=== PATIENT | male | born 1975 ===

== ENCOUNTER 2016-05-17 21:19 | Emergency (ER) | payer SELFPAY ==
[2016-05-17 22:00] VITALS: BP 122/79; PULSE 69; RESP 16; TEMP 98.3; O2SAT 98
--- NOTE | 2016-05-17 23:09 | ED PDOC ---
HPI: Abdomen Time Seen by Provider: 05/17/16 22:01 Chief Complaint (Nursing): Abdominal Pain Chief Complaint (Provider): Abdominal Pain History Per: Patient Additional Complaint(s): Pt is a 41 yo male, no PMH, presents to ED for evaluation of acute onset of right flank pain that developed around 5 pm. Pt reports pain is severe 9/10 and reports that he is nauseous at times and has been sweating, No vomiting, no fever or chills. no urinary complaints, no history of kidney stones. Past Medical History Reviewed: Nursing Documentation, Vital Signs Vital Signs: Last Vital Signs Temp 98.3 F 05/17/16 21:57 Pulse 69 05/17/16 21:57 Resp 16 05/17/16 21:57 BP 122/79 05/17/16 21:57 Pulse Ox 98 05/17/16 23:09 - Medical History PMH: No Chronic Diseases - Surgical History Surgical History: No Surg Hx - Family History Family History: States: No Known Family Hx - Living Arrangements Living Arrangements: With Family - Social History Current smoker - smoking cessation education provided: No Alcohol: Social Drugs: Denies - Allergies Allergies/Adverse Reactions: Allergies Allergy/AdvReac Type Severity Reaction Status Date / Time No Known Allergies Allergy Verified 05/17/16 22:00 Review of Systems ROS Statement: Except As Marked, All Systems Reviewed And Found Negative Gastrointestinal: Positive for: Abdominal Pain Physical Exam - Reviewed Nursing Documentation Reviewed: Yes Vital Signs Reviewed: Yes - Physical Exam Appears: Positive for: Well, Non-toxic, No Acute Distress Head Exam: Positive for: ATRAUMATIC, NORMAL INSPECTION, NORMOCEPHALIC Skin: Positive for: Normal Color, Warm, DRY Eye Exam: Positive for: EOMI, Normal appearance, PERRL ENT: Positive for: Normal ENT Inspection Neck: Positive for: Normal, Painless ROM Cardiovascular/Chest: Positive for: Regular Rate, Rhythm Respiratory: Positive for: CNT, Normal Breath Sounds Gastrointestinal/Abdominal: Positive for: Bowel Sounds, Soft, Tenderness (R flank) Back: Positive for: Normal Inspection, R CVA Tenderness Extremity: Positive for: Normal ROM Neurologic/Psych: Positive for: Alert, Oriented - Laboratory Results Result Diagrams: 05/17/16 23:22 - ECG O2 Sat by Pulse Oximetry: 98 Medical Decision Making Medical Decision Making: IV access established and treatment initiated with IVF, Zofran, Morphine and Toradol Diagnostics ordered, WBC 11.9 COMP and UA pending CT scan pending Pt on re-eval reports pain is markedly improved, 05/04. 23:45: Transport present to escort Pt to CT scan. Case endorsed to CHRISTOPHER Sue at midnight pending diagnostic review and re-eval Disposition - Clinical Impression Clinical Impression: Flank pain - Patient ED Disposition Is Patient to be Admitted: No - Disposition Disposition: Transfer of Care ([facility]) Disposition Time: 00:00 Condition: STABLE
[2016-05-17 23:30] LABS: BASO # 0.1 K/uL (0.0-0.2); BASO % 0.7 % (0.0-2.0); EOS # 0.1 K/uL (0.0-0.7); EOS % 0.5 % (0.0-4.0); HEMATOCRIT 43.1 % (35.0-51.0); LYMPH # 1.4 K/uL (1.0-4.3); LYMPH % 11.9 % (20.0-40.0); MEAN CELL VOLUME 87.1 fl (80.0-94.0); MEAN CORPUSCULAR HEMOGLOBIN 28.5 pg (27.0-31.0); MEAN CORPUSCULAR HGB CONC 32.7 g/dL (33.0-37.0); MEAN PLATELET VOLUME 9.2 fl (7.2-11.7); MONO # 0.7 K/uL (0.0-0.8); MONO % 6.1 % (0.0-10.0); NEUT # 9.6 K/uL (1.8-7.0); NEUT % 80.8 % (50.0-75.0); NRBC % 0.1 % (0.0-0.0); RED CELL DISTRIBUTION WIDTH 13.1 % (11.5-14.5); WHITE BLOOD COUNT 11.9 K/uL (4.8-10.8)
[2016-05-17 23:38] LABS: ALB/GLOB RATIO 1.1 (1.0-2.1); ALKALINE PHOSPHATASE 95 U/L (38-126); ALT/SGPT 51 U/L (21-72); AST/SGOT 37 U/L (17-59); BILIRUBIN,TOTAL 0.7 mg/dl (0.2-1.3); BLOOD UREA NITROGEN 14 mg/dl (9-20); CALCIUM 8.7 mg/dL (8.4-10.2); CARBON DIOXIDE 25 mmol/L (22-30); CHLORIDE 104 mmol/L (98-107); GFR AFRICAN-AMERICAN > 60; GLUCOSE,RANDOM 159 mg/dL (75-110); POTASSIUM 3.9 MMOL/L (3.6-5.0); SODIUM 144 mmol/l (132-148); TOTAL PROTEIN 7.8 G/DL (6.3-8.2)
[2016-05-18 00:22] LABS: RBC URINE 97 /hpf (0-3); URINE BILIRUBIN NEGATIVE (NEGATIVE); URINE BLOOD MODERATE (NEGATIVE); URINE COLOR YELLOW (YELLOW); URINE GLUCOSE (UA) NEG (Normal); URINE KETONE NEGATIVE (NEGATIVE); URINE LEUKOCYTE ESTERASE NEG Leu/uL (Negative); URINE PROTEIN 30 mg/dL (NEGATIVE); URINE UROBILINOGEN 0.2-1.0 mg/dL (0.2-1.0); WBC URINE 3 /hpf (0-5)
--- NOTE | 2016-05-18 01:12 | ED PDOC ---
- Laboratory Results Result Diagrams: 05/17/16 23:22 05/17/16 23:22 - ECG O2 Sat by Pulse Oximetry: 98 - Progress ED Course And Treament: Case endorsed to card writer hand from Katherine WHITE pending labs, CT renal protocol EXAM: CT Abdomen and Pelvis Without Intravenous Contrast. CLINICAL HISTORY: 41 years old, male; Pain; Abdominal pain; Flank; Right; Additional info: R flank TECHNIQUE: Axial computed tomography images of the abdomen and pelvis without intravenous contrast. This CT exam was performed using one or more of the following dose reduction techniques: automated exposure control, adjustment of the mA and/or kV according to patient size, and/ or use of iterative reconstruction technique. EXAM DATE/TIME: Exam ordered 05/17/2016 10:47 PM COMPARISON: No relevant prior studies available. FINDINGS: Lower thorax: No acute findings. ABDOMEN: Liver: Unremarkable. Gallbladder and bile ducts: Unremarkable. No calcified stones. No ductal dilation. Pancreas: Unremarkable. No ductal dilation. Spleen: Unremarkable. No splenomegaly. Adrenals: Unremarkable. No mass. Kidneys and ureters: Punctate nonobstructing left renal calculus. Slight right renal sinus edema with mild right hydronephrosis and hydroureter which extends to a 2 mm right UVJ calculus. Stomach and bowel: Unremarkable. No obstruction. No mucosal thickening. Appendix: A normal appendix is seen. PELVIS: Bladder: Unremarkable. No stones. Reproductive: Unremarkable as visualized. ABDOMEN and PELVIS: Intraperitoneal space: Unremarkable. No free air. No significant fluid collection. Bones/joints: No acute fracture. No dislocation. Soft tissues: Unremarkable. Vasculature: Unremarkable. No abdominal aortic aneurysm. Lymph nodes: Unremarkable. No enlarged lymph nodes. IMPRESSION: 1. 2 mm right UVJ calculus with mild secondary obstructive uropathy of the right upper tract. 2. Punctate nonobstructing left renal calculus. 3. Otherwise negative CT abdomen/pelvis. On re-eval, patient states pain resolved. Flomax PO ordered Patient educated on findings, discharged with rx Flomax, Tramadol. Advised Ibuprofen PRN mod pain, otherwise tramadol severe pain. Follow up urology. Strainer given with education on use. Return to ED for worsening/concerning symptoms. Disposition - Clinical Impression Clinical Impression: Kidney stone - POA Present On Arrival: None - Disposition Referrals: [facility] [Outside] Gerson Gomes MD [Medical Doctor] - Disposition: Routine/Home Disposition Time: 01:48 Condition: IMPROVED Prescriptions: Tamsulosin [Flomax] 0.4 mg PO DAILY #7 cap traMADol [Ultram] 50 mg PO Q8 #12 tab Instructions: Kidney Stones (ED), Renal Colic (ED), How to Strain Your Urine ( ED)
--- NOTE | 2016-05-18 10:02 | CT ---
PROCEDURE: CT Abdomen and pelvis dated 05/17/2016. . HISTORY: r flank COMPARISON: None. TECHNIQUE: Contiguous axial images of the abdomen and pelvis performed in standard fashion of without oral or intravenous contrast material. Additional 2 dimensional sagittal and coronal reformats provided. Radiation dose: Total exam DLP = 1017.34 oralia mGy-cm. FINDINGS: LOWER THORAX: Unremarkable. LIVER: Unremarkable. No gross lesion or ductal dilatation. GALLBLADDER AND BILE DUCTS: Unremarkable. PANCREAS: Unremarkable. No mass. No ductal dilatation. SPLEEN: Unremarkable. No splenomegaly. ADRENALS: Unremarkable. KIDNEYS AND URETERS: Small approximately 2 mm calcification seen in the right UVJ region with mild right-sided hydronephrosis. . There is a punctate calcifications seen in the upper pole left kidney. BLADDER: Grossly unremarkable. REPRODUCTIVE: Unremarkable. APPENDIX: Unremarkable. BOWEL: Unremarkable. No obstruction. No gross mural thickening. PERITONEUM: Unremarkable. No fluid collection. No free air. LYMPH NODES: Unremarkable. No enlarged lymph nodes. VASCULATURE: Unremarkable. No aortic aneurysm. BONES: Minor multilevel degenerative spondylosis of the lower thoracic and lumbar spine. OTHER FINDINGS: None. IMPRESSION: 2 mm calcification right UVJ region with mild right-sided hydronephrosis. Punctate nonobstructing calcification upper pole left kidney.
== END 2016-05-18 02:25 | disposition home or self-care (01) ==
LOC: H.ER 21:19
DX: N20.0 Calculus of kidney (principal); R10.9 Unspecified abdominal pain
CPT/HCPCS: 74176; 80053; 81003; 85025; 96374; 96375; 99282; J1885; J2270; J2405

== ENCOUNTER 2017-01-07 20:07 | Emergency (ER) | payer OTHER ==
[2017-01-07 20:17] VITALS: RESP 18; O2SAT 99
[2017-01-07] MEDS ORDERED: DiphenhydrAMINE 50 mg/ml Inj IV STA (20:33)
--- NOTE | 2017-01-07 20:35 | ED PDOC ---
HPI: Abdomen Time Seen by Provider: 01/07/17 20:23 Chief Complaint (Nursing): Abnormal Skin Integrity Chief Complaint (Provider): abdominal pain History Per: Patient History/Exam Limitations: no limitations Onset/Duration Of Symptoms: Days (2 weeks), Waxing/Waning Current Symptoms Are (Timing): Still Present Location Of Pain/Discomfort: Epigastric, LUQ, LLQ Quality Of Discomfort: "Pain" Additional History Per: Patient Additional Complaint(s): 41 y/o male presents with intermittent left-sided abdominal pain x 2 weeks. Denies fever, nausea/vomiting, chest pain, shortness of breath, dysuria, hematuria. Patient also c/o generalized pruritic rash x 2 days. Patient states he has had this rash before about 6 months ago and is not sure the cause of it. Denies fever, difficulty speaking/swallowing, known allergen. No medications taken for relief thus far. Past Medical History Reviewed: Historical Data, Nursing Documentation, Vital Signs Vital Signs: Last Vital Signs Temp 99.0 F 01/07/17 20:14 Pulse 82 01/07/17 20:14 Resp 18 01/07/17 20:14 BP 133/73 01/07/17 20:14 Pulse Ox 99 01/07/17 23:38 - Medical History PMH: No Chronic Diseases - Surgical History Surgical History: No Surg Hx - Family History Family History: States: No Known Family Hx - Living Arrangements Living Arrangements: With Family - Home Medications Home Medications: Ambulatory Orders Medication Instructions Recorded Tamsulosin [Flomax] 0.4 mg PO DAILY #7 cap 05/18/16 traMADol [Ultram] 50 mg PO Q8 #12 tab 05/18/16 DiphenhydrAMINE [Benadryl] 50 mg PO Q6 PRN #30 cap 01/08/17 Famotidine [Pepcid] 20 mg PO BID #10 tab 01/08/17 Ibuprofen [Motrin Tab] 1 tab PO Q6 PRN #20 tab 01/08/17 Tamsulosin [Flomax] 0.4 mg PO DAILY #10 cap 01/08/17 predniSONE [Prednisone] 60 mg PO DAILY #12 tab 01/08/17 - Allergies Allergies/Adverse Reactions: Allergies Allergy/AdvReac Type Severity Reaction Status Date / Time No Known Allergies Allergy Verified 05/17/16 22:00 Review of Systems ROS Statement: Except As Marked, All Systems Reviewed And Found Negative Gastrointestinal: Positive for: Abdominal Pain Skin: Positive for: Rash Physical Exam - Reviewed Nursing Documentation Reviewed: Yes Vital Signs Reviewed: Yes - Physical Exam Appears: Positive for: Well, Non-toxic, No Acute Distress Head Exam: Positive for: ATRAUMATIC, NORMAL INSPECTION, NORMOCEPHALIC Skin: Positive for: Rash (diffuse erythematous macular rash; no tenderness, sandpaper appearance, pustules, vesicles noted) ENT: Positive for: Normal ENT Inspection Cardiovascular/Chest: Positive for: Regular Rate, Rhythm Respiratory: Positive for: Normal Breath Sounds Gastrointestinal/Abdominal: Positive for: Bowel Sounds, Soft, Tenderness (LUQ, LLQ, left flank) Back: Positive for: Normal Inspection Extremity: Positive for: Normal ROM Neurologic/Psych: Positive for: Alert, Oriented - Laboratory Results Result Diagrams: 01/07/17 20:57 01/07/17 20:57 - ECG O2 Sat by Pulse Oximetry: 99 - Progress ED Course And Treament: labs, urine, CT renal protocol, IV solumedrol, IV benadryl, IV pepcid XAM: CT Abdomen and Pelvis Without Intravenous Contrast CLINICAL HISTORY: 41 years old, male; Pain; Abdominal pain; Localized; Left; Additional info: Left abd/flank pain. Sent phy. Doc. TECHNIQUE: Axial computed tomography images of the abdomen and pelvis without intravenous contrast. All CT scans at this facility use one or more dose reduction techniques, viz.: automated exposure control; ma/kV adjustment per patient size (including targeted exams where dose is matched to indication; i.e. head); or iterative reconstruction technique. Coronal and sagittal reformatted images were created and reviewed. COMPARISON: No relevant prior studies available. FINDINGS: Lower thorax: The bilateral lung bases are clear. ABDOMEN: Liver: The liver is enlarged and demonstrates diffuse fatty infiltration. Gallbladder and bile ducts: No acute finding. No calcified stones. No intra- extrahepatic biliary ductal dilation. Pancreas: Limited evaluation secondary to the lack of intravenous contrast. Spleen: No acute findings. Adrenals: No acute findings. Kidneys and ureters: Mild right sided hydroureteronephrosis extending to the distal right ureter (just proximal to the ureterovesicular junction) where a 2 mm stone is identified ( series 601, image 68; series 3, image 166). The left kidney and ureter are unremarkable. PELVIS: Bladder: No acute findings. Reproductive: No acute findings. Appendix: The appendix is of normal caliber (series 3, image 133) ABDOMEN and PELVIS: Stomach and bowel: No acute findings. Peritoneum: No acute findings. Lymph nodes: Limited evaluation without intravenous contrast. Vasculature: Unremarkable. Bones: No acute fracture. IMPRESSION: Mild right-sided hydroureteronephrosis secondary to a 2 mm stone in the distal right ureter, just proximal to the right UVJ. Fatty infiltration of an enlarged liver. Patient educated on findings, discharged with rx prednisone, pepcid, benadryl, ibuprofen, flomax. Advised follow up PMD/urology/dermatology Return to ED for worsening/concerning symptoms. Disposition - Clinical Impression Clinical Impression: Kidney stone, Abdominal pain, Rash - Patient ED Disposition Is Patient to be Admitted: No Counseled Patient/Family Regarding: Studies Performed, Diagnosis, Need For Followup - Disposition Referrals: [facility] [Outside] Jim Orellana Jr., MD [Staff Provider] - Disposition: Routine/Home Disposition Time: 03:00 Condition: IMPROVED Prescriptions: DiphenhydrAMINE [Benadryl] 50 mg PO Q6 PRN #30 cap PRN Reason: Allergy Symptoms Famotidine [Pepcid] 20 mg PO BID #10 tab Ibuprofen [Motrin Tab] 1 tab PO Q6 PRN #20 tab PRN Reason: Pain, Moderate (4-7) predniSONE [Prednisone] 60 mg PO DAILY #12 tab Tamsulosin [Flomax] 0.4 mg PO DAILY #10 cap Instructions: Abdominal Pain (ED), Kidney Stones (ED), Acute Rash (ED) Forms: [employer] (Italian) Print Language: NORTH KOREAN
[2017-01-07 21:12] LABS: BASO # 0.1 K/uL (0.0-0.2); BASO % 1.5 % (0.0-2.0); EOS # 0.1 K/uL (0.0-0.7); HEMATOCRIT 43.8 % (35.0-51.0); LYMPH # 2.6 K/uL (1.0-4.3); LYMPH % 26.9 % (20.0-40.0); MEAN CELL VOLUME 86.6 fl (80.0-94.0); MEAN CORPUSCULAR HEMOGLOBIN 28.7 pg (27.0-31.0); MEAN CORPUSCULAR HGB CONC 33.1 g/dL (33.0-37.0); MONO # 0.8 K/uL (0.0-0.8); MONO % 7.9 % (0.0-10.0); NEUT % 62.7 % (50.0-75.0); RED CELL DISTRIBUTION WIDTH 13.2 % (11.5-14.5); WHITE BLOOD COUNT 9.6 K/uL (4.8-10.8)
[2017-01-07 21:29] LABS: ALB/GLOB RATIO 1.2 (1.0-2.1); ALKALINE PHOSPHATASE 99 U/L (38-126); ALT/SGPT 46 U/L (21-72); AST/SGOT 26 U/L (17-59); BILIRUBIN,TOTAL 0.4 mg/dl (0.2-1.3); BLOOD UREA NITROGEN 14 mg/dl (9-20); CALCIUM 8.8 mg/dL (8.4-10.2); CARBON DIOXIDE 24 mmol/L (22-30); CHLORIDE 107 mmol/L (98-107); GFR AFRICAN-AMERICAN > 60; GLUCOSE,RANDOM 111 mg/dL (75-110); LIPASE 74 U/L (23-300); POTASSIUM 4.1 MMOL/L (3.6-5.0); SODIUM 144 mmol/l (132-148); TOTAL PROTEIN 8.1 G/DL (6.3-8.2); URINE BILIRUBIN NEGATIVE (NEGATIVE); URINE BLOOD MODERATE (NEGATIVE); URINE COLOR YELLOW (YELLOW); URINE GLUCOSE (UA) NEG (Normal); URINE KETONE NEGATIVE (NEGATIVE); URINE LEUKOCYTE ESTERASE NEG Leu/uL (Negative); URINE PROTEIN NEGATIVE (NEGATIVE); URINE UROBILINOGEN 0.2-1.0 mg/dL (0.2-1.0); WBC URINE < 1 /hpf (0-5)
[2017-01-07 21:35] LABS: RBC URINE 21 /hpf (0-3)
--- NOTE | 2017-01-07 23:19 | CT ---
EXAM: CT Abdomen and Pelvis Without Intravenous Contrast CLINICAL HISTORY: 41 years old, male; Pain; Abdominal pain; Localized; Left; Additional info: Left abd/flank pain. Sent phy. Doc. TECHNIQUE: Axial computed tomography images of the abdomen and pelvis without intravenous contrast. All CT scans at this facility use one or more dose reduction techniques, viz.: automated exposure control; ma/kV adjustment per patient size (including targeted exams where dose is matched to indication; i.e. head); or iterative reconstruction technique. Coronal and sagittal reformatted images were created and reviewed. COMPARISON: No relevant prior studies available. FINDINGS: Lower thorax: The bilateral lung bases are clear. ABDOMEN: Liver: The liver is enlarged and demonstrates diffuse fatty infiltration. Gallbladder and bile ducts: No acute finding. No calcified stones. No intra-extrahepatic biliary ductal dilation. Pancreas: Limited evaluation secondary to the lack of intravenous contrast. Spleen: No acute findings. Adrenals: No acute findings. Kidneys and ureters: Mild right sided hydroureteronephrosis extending to the distal right ureter (just proximal to the ureterovesicular junction) where a 2 mm stone is identified (series 601, image 68; series 3, image 166). The left kidney and ureter are unremarkable. PELVIS: Bladder: No acute findings. Reproductive: No acute findings. Appendix: The appendix is of normal caliber (series 3, image 133). ABDOMEN and PELVIS: Stomach and bowel: No acute findings. Peritoneum: No acute findings. Lymph nodes: Limited evaluation without intravenous contrast. Vasculature: Unremarkable. Bones: No acute fracture. IMPRESSION: Mild right-sided hydroureteronephrosis secondary to a 2 mm stone in the distal right ureter, just proximal to the right UVJ. Fatty infiltration of an enlarged liver.
[2017-01-08 02:35] LABS: PARTIAL THROMBOPLASTIN TIME 31.4 Seconds (25.6-37.1)
[2017-01-08 03:11] VITALS: BP 130/87; PULSE 76; TEMP 98.7
== END 2017-01-08 03:30 | disposition home or self-care (01) ==
LOC: H.ER 20:07
DX: N13.2 Hydronephrosis with renal and ureteral calculous obstruction (principal); K76.0 Fatty (change of) liver, not elsewhere classified
CPT/HCPCS: 74176; 80053; 81003; 83690; 85025; 85610; 85730; 96374; 96375; 99282; J1200; J2930

== ENCOUNTER 2017-09-01 17:02 | Emergency (ER) | payer OTHER, SELFPAY ==
[2017-09-01 17:07] VITALS: BP 118/72; PULSE 92; RESP 16; TEMP 99; O2SAT 100
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
--- NOTE | 2017-09-02 08:56 | RAD ---
PROCEDURE: Left Knee Radiographs. HISTORY: Pain. COMPARISON: None. FINDINGS: BONES: No acute fracture. JOINTS: Normal. No osteoarthritis. JOINT EFFUSION: Small suprapatellar joint effusion. OTHER FINDINGS: Inferior extension of the patella. IMPRESSION: No acute fracture.
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
== END 2017-09-01 19:00 | disposition home or self-care (01) ==
LOC: H.ER 17:02
DX: S39.012A Strain of muscle, fascia and tendon of lower back, initial encounter (principal); S83.92XA Sprain of unspecified site of left knee, initial encounter; V43.52XA Car driver injured in collision with other type car in traffic accident, initial encounter; Y92.410 Unspecified street and highway as the place of occurrence of the external cause

== ENCOUNTER 2017-12-23 19:56 | Emergency (ER) | payer OTHER ==
[2017-12-23 20:16] VITALS: RESP 18; TEMP 98.9
[2017-12-23] MEDS ORDERED: Sodium Chloride 0.9% 1,000 ML IV STA (20:29)
--- NOTE | 2017-12-23 20:32 | ED PDOC ---
HPI: Abdomen Time Seen by Provider: 12/23/17 20:24 Chief Complaint (Nursing): Male Genitourinary Chief Complaint (Provider): abdominal pain History Per: Patient History/Exam Limitations: no limitations Onset/Duration Of Symptoms: Days (2 week), Waxing/Waning Current Symptoms Are (Timing): Still Present Location Of Pain/Discomfort: LLQ, Suprapubic Quality Of Discomfort: "Pain" Associated Symptoms: Urinary Symptoms Additional Complaint(s): 42 y/o male presents for evaluation of intermittent abdominal pain x 2 weeks. Patient states pain mostly left lower abdomen, sometimes feels "burning" s ensation in left lower back. Patient reports pain with urination and pain to left testicle with urination. Denies fever, nausea/vomiting, chest pain, shortness of breath, changes in bowel movements, hematuria, penile discharge, testicular swelling. No medication taken for relief thus far Past Medical History Reviewed: Historical Data, Nursing Documentation, Vital Signs Vital Signs: Last Vital Signs Temp 98.9 F 12/23/17 20:15 Pulse 77 12/23/17 20:15 Resp 18 12/23/17 20:15 BP 123/67 12/23/17 20:15 Pulse Ox 97 12/23/17 20:15 - Medical History PMH: No Chronic Diseases - Surgical History Surgical History: No Surg Hx - Family History Family History: States: No Known Family Hx - Living Arrangements Living Arrangements: With Family - Home Medications Home Medications: Ambulatory Orders Medication Instructions Recorded Tamsulosin [Flomax] 0.4 mg PO DAILY #7 cap 05/18/16 traMADol [Ultram] 50 mg PO Q8 #12 tab 05/18/16 DiphenhydrAMINE [Benadryl] 50 mg PO Q6 PRN #30 cap 01/08/17 Famotidine [Pepcid] 20 mg PO BID #10 tab 01/08/17 Ibuprofen [Motrin Tab] 1 tab PO Q6 PRN #20 tab 01/08/17 Tamsulosin [Flomax] 0.4 mg PO DAILY #10 cap 01/08/17 predniSONE [Prednisone] 60 mg PO DAILY #12 tab 01/08/17 Cyclobenzaprine [Cyclobenzaprine 10 mg PO TID PRN #20 tab 09/01/17 HCl] Naproxen [Naprosyn] 500 mg PO BID #20 tab 09/01/17 Naproxen [Naprosyn] 500 mg PO Q12 PRN #20 tablet 12/23/17 - Allergies Allergies/Adverse Reactions: Allergies Allergy/AdvReac Type Severity Reaction Status Date / Time No Known Allergies Allergy Verified 05/17/16 22:00 Review of Systems ROS Statement: Except As Marked, All Systems Reviewed And Found Negative Gastrointestinal: Positive for: Abdominal Pain Genitourinary Male: Positive for: Dysuria Musculoskeletal: Positive for: Back Pain Physical Exam - Reviewed Nursing Documentation Reviewed: Yes Vital Signs Reviewed: Yes - Physical Exam Appears: Positive for: Well, Non-toxic, No Acute Distress Head Exam: Positive for: ATRAUMATIC, NORMAL INSPECTION, NORMOCEPHALIC Skin: Positive for: Normal Color Eye Exam: Positive for: Normal appearance ENT: Positive for: Normal ENT Inspection Cardiovascular/Chest: Positive for: Regular Rate, Rhythm Respiratory: Positive for: Normal Breath Sounds Gastrointestinal/Abdominal: Positive for: Bowel Sounds, Soft, Tenderness (suprapubic, LLQ) Back: Positive for: L CVA Tenderness. Negative for: R CVA Tenderness Extremity: Positive for: Normal ROM Neurologic/Psych: Positive for: Alert, Oriented (x3) - Laboratory Results Result Diagrams: 12/23/17 22:10 12/23/17 22:10 - ECG O2 Sat by Pulse Oximetry: 97 - Progress ED Course And Treament: labs, urine, IV fluids, IV toradol, testes u/s USArad testes u/s impression: mild left varicocele USArad CT renal protocol impression: no acute findings PAtient educated on findings, discharged with rx Naproxen. Advised ice to affected testicle FOllow up PMD within 2-3 days Return precautions given Disposition - Clinical Impression Clinical Impression: Left varicocele, Abdominal pain - Patient ED Disposition Is Patient to be Admitted: No Counseled Patient/Family Regarding: Studies Performed, Diagnosis, Need For Followup, Rx Given - Disposition Referrals: [facility] [Outside] Disposition: Routine/Home Disposition Time: 00:24 Condition: IMPROVED Prescriptions: Naproxen [Naprosyn] 500 mg PO Q12 PRN #20 tablet PRN Reason: Pain, Moderate (4-7) Instructions: Varicocele, Acute Abdomen (Belly Pain), Adult (DC)
[2017-12-23 22:19] LABS: SQUAMOUS EPITHIAL < 1 /hpf (0-5); URINE BILIRUBIN NEGATIVE (NEGATIVE); URINE BLOOD NEGATIVE (NEGATIVE); URINE CLARITY CLEAR (Clear); URINE COLOR YELLOW (YELLOW); URINE GLUCOSE (UA) NEG (Normal); URINE LEUKOCYTE ESTERASE NEG Leu/uL (Negative); URINE PROTEIN NEGATIVE (NEGATIVE); URINE UROBILINOGEN 0.2-1.0 mg/dL (0.2-1.0)
[2017-12-23 22:21] LABS: BASO # 0.1 K/uL (0.0-0.2); BASO % 1.1 % (0.0-2.0); EOS # 0.1 K/uL (0.0-0.7); EOS % 0.8 % (0.0-4.0); HEMOGLOBIN 14.7 g/dL (12.0-18.0); LYMPH # 2.1 K/uL (1.0-4.3); LYMPH % 19.7 % (20.0-40.0); MEAN CELL VOLUME 88.1 fl (80.0-94.0); MEAN CORPUSCULAR HEMOGLOBIN 29.6 pg (27.0-31.0); MEAN CORPUSCULAR HGB CONC 33.6 g/dL (33.0-37.0); MEAN PLATELET VOLUME 8.8 fl (7.2-11.7); MONO # 0.8 K/uL (0.0-0.8); MONO % 7.4 % (0.0-10.0); NEUT # 7.4 K/uL (1.8-7.0); RBC 4.97 Mil/uL (4.40-5.90); RED CELL DISTRIBUTION WIDTH 13.6 % (11.5-14.5); WHITE BLOOD COUNT 10.5 K/uL (4.8-10.8)
[2017-12-23 22:27] LABS: ALB/GLOB RATIO 1.1 (1.0-2.1); ALBUMIN 4.1 g/dL (3.5-5.0); ALT/SGPT 48 U/L (21-72); AST/SGOT 28 U/L (17-59); BLOOD UREA NITROGEN 14 mg/dl (9-20); CALCIUM 8.9 mg/dL (8.4-10.2); GFR NON-AFRICAN AMERICAN > 60
[2017-12-24 03:14] VITALS: BP 119/64; PULSE 88; O2SAT 99
--- NOTE | 2017-12-24 08:52 | US ---
Date of service: 12/23/2017 HISTORY: left testicular pain TECHNIQUE: Realtime sonography through the scrotum with color and doppler flow. COMPARISON: None Available. FINDINGS: RIGHT TESTICLE: Measures 4.2 x 3.1 x 1.9 cm. Normal echotexture and flow. RIGHT EPIDIDYMIS: Epididymal head measures 1.1 x 0.6 x 0.7 cm. Grossly unremarkable appearance with normal flow. LEFT TESTICLE: Measures 4.0 x 3.1 x 2.2 cm. Normal echotexture and flow. LEFT EPIDIDYMIS: Epididymal head measures 1.4 x 0.9 x 0.8 cm. Grossly unremarkable appearance with normal flow. HYDROCELE: None. VARICOCELE: There is a small left varicocele. OTHER FINDINGS: None. IMPRESSION: No evidence for testicular mass or torsion. No epididymo-orchitis. Small left varicocele. A preliminary report was provided by [employer].
--- NOTE | 2017-12-24 10:45 | CT ---
Date of service: 12/23/2017 PROCEDURE: CT Abdomen and Pelvis without intravenous contrast HISTORY: left abd pain COMPARISON: CT scan of the abdomen and pelvis dated 01/07/2017 TECHNIQUE: Contiguous images were obtained from the domes of the diaphragms to the upper thighs without the administration of intravenous contrast. Oral contrast was not administered. Radiation dose: Total exam DLP = 799.91 mGy-cm. This CT exam was performed using one or more of the following dose reduction techniques: Automated exposure control, adjustment of the mA and/or kV according to patient size, and/or use of iterative reconstruction technique. FINDINGS: LOWER THORAX: Cardiomegaly. LIVER: Hepatic steatosis. No gross lesion or ductal dilatation. GALLBLADDER AND BILE DUCTS: Unremarkable. PANCREAS: Unremarkable. No gross lesion or ductal dilatation. SPLEEN: Unremarkable. ADRENALS: Unremarkable. No mass. KIDNEYS AND URETERS: Redemonstration of punctate calcification in the region of the distal right ureter which may be a phlebolith versus a calculus within a tiny ureteral diverticulum. No hydronephrosis. No solid mass. VASCULATURE: Unremarkable. No aortic aneurysm. No aortic atherosclerotic calcification or mural plaque present. BOWEL: Unremarkable. No obstruction. No gross mural thickening. APPENDIX: Unremarkable. Normal appendix. PERITONEUM: Unremarkable. No free fluid. No free air. LYMPH NODES: Unremarkable. No enlarged lymph nodes. BLADDER: Unremarkable. REPRODUCTIVE: Unremarkable. BONES: No acute fracture. OTHER FINDINGS: None. IMPRESSION: No acute abdominal pelvic pathology. No obstructive urolithiasis or evidence of recently passed genitourinary calculus.
== END 2017-12-24 00:34 | disposition home or self-care (01) ==
LOC: H.ER 19:56
DX: I86.1 Scrotal varices (principal); R10.9 Unspecified abdominal pain
CPT/HCPCS: 74176; 80053; 81003; 85025; 87086; 87491; 87591; 93975; J1885; J7030